=== PATIENT | male | born 1995 | race Caucasian/White ===

== ENCOUNTER 2020-01-05 13:21 | Emergency (ER) | payer OTHER ==
[2020-01-05 13:41] VITALS: BP 136/67; PULSE 72; RESP 18; TEMP 98.4
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
[2020-01-05] MEDS ORDERED: ACET/COD 300 MG/30 MG STARTER PACK 6 TAB BTL PO STA (14:45)
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
== END 2020-01-05 15:10 | disposition home or self-care (01) ==
LOC: EC 13:21
DX: S42.002A Fracture of unspecified part of left clavicle, initial encounter for closed fracture (principal); F17.200 Nicotine dependence, unspecified, uncomplicated; V86.59XA Driver of other special all-terrain or other off-road motor vehicle injured in nontraffic accident, initial encounter; Y92.410 Unspecified street and highway as the place of occurrence of the external cause
CPT/HCPCS: 71046; 99284